=== PATIENT | female | born 1945 | race African-American/Black ===

== ENCOUNTER 2023-09-19 10:52 | Emergency (ER) | payer MEDICARE ==
[~2023-09-19] VITALS: Ht 160 cm; Wt 47.6 kg
[2023-09-19 10:58] VITALS: BP_SYST 137; PULSE 88; RESP 24; TEMP 99; O2SAT 98
[2023-09-19] MEDS ORDERED: IPRATROPIUM/ALBUTEROL SULFATE 3 ML AMPUL.NEB (DUONEB) ONE (11:22)
[2023-09-19] MEDS ORDERED: FUROSEMIDE 20 MG/2 ML VIAL IVP ONE (11:30)
[2023-09-19] MEDS ORDERED: methylPREDNISolone SOD SUCC/PF 62.5 MG/ML VIAL IVP ONE (11:30)
[2023-09-19] MEDS ORDERED: IPRATROPIUM/ALBUTEROL SULFATE 3 ML AMPUL.NEB (DUONEB) INH ONE (11:30)
[2023-09-19 12:02] LABS: BASOPHILS % (AUTO) 0.4 % (0.0-2.0); EOSINOPHILS % (AUTO) 0.2 % (0.0-4.0); HEMATOCRIT 41.8 % (36-48); LYMPHOCYTES # (AUTO) 0.6 K/uL (1.0-5.5); LYMPHOCYTES % (AUTO) 7.9 % (20.5-51.5); MEAN CORPUSCULAR HEMOGLOBIN 27 pg (27-31); MEAN CORPUSCULAR HGB CONC 31 % (32-36); MEAN CORPUSCULAR VOLUME 85 fL (79.0-98.0); MONOCYTES # (AUTO) 0.5 K/uL (0.0-1.0); MONOCYTES % (AUTO) 6.3 % (1.7-9.3); NEUTROPHILS # (AUTO) 6.8 K/uL (1.8-7.7); NEUTROPHILS % (AUTO) 85.2 % (40.0-70.0); PLATELET COUNT (AUTO) 310 K/uL (130-430); RED BLOOD CELL COUNT(AUTO) 4.91 MIL/uL (4.2-6.2); RED CELL DISTRIBUTION WIDTH 15.9 % (9.0-15.0)
[2023-09-19 12:17] LABS: ANION GAP 10 (5-15); CALCIUM 9.8 mg/dL (8.4-11.0); CARBON DIOXIDE 28 mmol/L (23-29); CHLORIDE 99 mmol/L (98-107); CREATININE 0.79 mg/dL (0.55-1.30); GLUCOSE 105 mg/dL (74-106); POTASSIUM 4.6 mmol/L (3.5-5.1); SODIUM SERUM 137 mmol/L (136-145); UREA NITROGEN, BLOOD 25 mg/dL (8-21)
[2023-09-19 12:24] LABS: ALANINE AMINOTRANSFERASE 22 U/L (12-78); ALBUMIN 2.6 g/dL (3.4-4.8); ASPARTATE AMINOTRANSFERASE 21 U/L (10-37); TOTAL BILIRUBIN 1.1 mg/dL (0.0-1.0); TOTAL PROTEIN, SERUM 7.2 g/dL (6.4-8.3)
[2023-09-19] MEDS ORDERED: APIX5TAB PO (13:44)
[2023-09-19] MEDS ORDERED: HYDR-3917 PO (13:47)
[2023-09-19 13:58] LABS: INFLUENZA TYPE A NEGATIVE (NEGATIVE)
[2023-09-19 14:00] LABS: INFLUENZA TYPE B POSITIVE (NEGATIVE)
[2023-09-19] MEDS ORDERED: AZITHROMYCIN 500 MG in NS 250 ML IV ONE ×3 (14:00→16:00)
[2023-09-19] MEDS ORDERED: MORPHINE 2 MG/ML INJ. SYRINGE IVP ONE (14:00)
[2023-09-19] MEDS ORDERED: AZITHROMYCIN 500 MG in NS 250 ML IV SCH (15:00)
[2023-09-19] MEDS ORDERED: OSELTAMIVIR PHOSPHATE 75 MG CAPSULE PO ONE (15:00)
[2023-09-19 17:57] VITALS: BP_SYST 126; PULSE 73; RESP 18; TEMP 97.6; O2SAT 97
== END 2023-09-19 17:47 | disposition short-term general hospital (02) ==
LOC: SED 10:52
DX: J10.1 Influenza due to other identified influenza virus with other respiratory manifestations (principal); J18.9 Pneumonia, unspecified organism; I11.0 Hypertensive heart disease with heart failure; I50.9 Heart failure, unspecified; R07.89 Other chest pain; Z91.013 Allergy to seafood; Z79.899 Other long term (current) drug therapy; Z20.822 Contact with and (suspected) exposure to COVID-19
CPT/HCPCS: 99285; 96365; 71270; 71045; 96375; 96366; 87426; 80053; 83880; 85025; 85379; 87040; 84484; 36415; 76376; 94640; 94760; 96368; 83605; 87804 ×2; J0456; J0696; J1940; J2930; J7060; J7050; G9035

== ENCOUNTER 2024-03-07 15:09 | Emergency (ER) | payer MEDICARE ==
[~2024-03-07] VITALS: Ht 157.5 cm; Wt 52.2 kg
[~2024-03-07 15:09] MED LIST: APIX5TAB PO; HYDR-3917 PO
[2024-03-07 15:12] VITALS: BP_SYST 155; PULSE 80; RESP 20; TEMP 97.8; O2SAT 96
[2024-03-07 17:11] LABS: BASOPHILS % (AUTO) 0.1 % (0.0-2.0); EOSINOPHILS # (AUTO) 0.1 K/uL (0.0-0.4); EOSINOPHILS % (AUTO) 1.5 % (0.0-4.0); HEMATOCRIT 41.2 % (36-48); HEMOGLOBIN 13.1 g/dL (12.0-16.0); LYMPHOCYTES # (AUTO) 1.2 K/uL (1.0-5.5); LYMPHOCYTES % (AUTO) 13.5 % (20.5-51.5); MEAN CORPUSCULAR HEMOGLOBIN 26 pg (27-31); MEAN CORPUSCULAR HGB CONC 32 % (32-36); MEAN CORPUSCULAR VOLUME 81 fL (79.0-98.0); MONOCYTES # (AUTO) 0.8 K/uL (0.0-1.0); MONOCYTES % (AUTO) 8.9 % (1.7-9.3); NEUTROPHILS # (AUTO) 6.8 K/uL (1.8-7.7); PLATELET COUNT (AUTO) 235 K/uL (130-430); RED BLOOD CELL COUNT(AUTO) 5.09 MIL/uL (4.2-6.2); RED CELL DISTRIBUTION WIDTH 18.8 % (9.0-15.0); WHITE BLOOD COUNT (AUTO) 8.9 K/uL (4.8-10.8)
[2024-03-07 17:27] LABS: ALANINE AMINOTRANSFERASE 35 U/L (12-78); ANION GAP 5 (5-15); ASPARTATE AMINOTRANSFERASE 21 U/L (10-37); BILIRUBIN,DIRECT 0.9 mg/dL (0.0-0.3); CALCIUM 8.5 mg/dL (8.4-11.0); CARBON DIOXIDE 39 mmol/L (23-29); CHLORIDE 101 mmol/L (98-107); CREATININE 1.08 mg/dL (0.55-1.30); GLUCOSE 166 mg/dL (74-106); LIPASE 47 U/L (16-77); POTASSIUM 3.5 mmol/L (3.5-5.1); SODIUM SERUM 145 mmol/L (136-145); TOTAL BILIRUBIN 1.5 mg/dL (0.0-1.0); TOTAL PROTEIN, SERUM 6.3 g/dL (6.4-8.3); UREA NITROGEN, BLOOD 54 mg/dL (8-21)
[2024-03-07 19:19] VITALS: BP_SYST 130; PULSE 77; RESP 18; TEMP 97.5; O2SAT 93
== END 2024-03-07 17:50 | disposition home or self-care (01) ==
LOC: SED 15:09
DX: R10.9 Unspecified abdominal pain (principal); R19.7 Diarrhea, unspecified; J44.9 Chronic obstructive pulmonary disease, unspecified; I10 Essential (primary) hypertension; Z91.013 Allergy to seafood; Z79.899 Other long term (current) drug therapy
CPT/HCPCS: 36415; 80048; 80076; 83690; 85025; 99284

== ENCOUNTER 2024-07-26 00:15 | Inpatient (IN) | payer MEDICARE ==
[~2024-07-26] VITALS: Ht 157.5 cm; Wt 46.7 kg
[2024-07-26 00:15] VITALS: BP_SYST 104; PULSE 84; RESP 21; TEMP 98.9; O2SAT 100
[2024-07-26] MEDS: methylPREDNISolone SOD SUCC/PF 62.5 MG/ML VIAL IVP ONE (01:25)
[2024-07-26] MEDS ORDERED: methylPREDNISolone SOD SUCC/PF 62.5 MG/ML VIAL ONE (01:27)
[2024-07-26] MEDS: cefTRIAXone 1 GM in D5W 50 ML IV ONE (01:36)
[2024-07-26] MEDS ORDERED: cefTRIAXone 1 GM VIAL ONE (01:37)
[2024-07-26] MEDS: AZITHROMYCIN 500 MG in NS 250 ML IV ONE (01:54)
[2024-07-26] MEDS ORDERED: AZITHROMYCIN 500 MG/VIAL (ZITHROMAX) IV ONE (01:56)
[2024-07-26 02:19] LABS: ANION GAP 4 (5-15); CALCIUM 9.3 mg/dL (8.4-11.0); CARBON DIOXIDE 31 mmol/L (23-29); CHLORIDE 97 mmol/L (98-107); CREATININE 0.96 mg/dL (0.55-1.30); GLUCOSE 112 mg/dL (74-106); SODIUM SERUM 132 mmol/L (136-145); UREA NITROGEN, BLOOD 23 mg/dL (8-21)
[2024-07-26 02:28] LABS: BASOPHILS % (AUTO) 0.3 % (0.0-2.0); EOSINOPHILS % (AUTO) 0.3 % (0.0-4.0); LYMPHOCYTES # (AUTO) 1.5 K/uL (1.0-5.5); LYMPHOCYTES % (AUTO) 10.5 % (20.5-51.5); MEAN CORPUSCULAR HEMOGLOBIN 26 pg (27-31); MEAN CORPUSCULAR HGB CONC 32 % (32-36); MEAN CORPUSCULAR VOLUME 82 fL (79.0-98.0); MONOCYTES # (AUTO) 1.1 K/uL (0.0-1.0); MONOCYTES % (AUTO) 7.9 % (1.7-9.3); NEUTROPHILS # (AUTO) 11.6 K/uL (1.8-7.7); PLATELET COUNT (AUTO) 282 K/uL (130-430); RED BLOOD CELL COUNT(AUTO) 5.03 MIL/uL (4.2-6.2); RED CELL DISTRIBUTION WIDTH 18.1 % (9.0-15.0); WHITE BLOOD COUNT (AUTO) 14.3 K/uL (4.8-10.8)
[2024-07-26] MEDS ORDERED: ALBUTEROL SULFATE 0.083% 2.5 MG/3 ML VIAL.NEB INH PRN (05:45)
[2024-07-26] MEDS ORDERED: CARV3.1246 PO (05:48)
[2024-07-26 09:07] VITALS: BP_SYST 113; PULSE 72; RESP 18; TEMP 98.2
[2024-07-26 09:18] VITALS: BP_SYST 113; PULSE 72; RESP 18; TEMP 98.2; O2SAT 95
[2024-07-26 09:57] VITALS: BP_SYST 108; PULSE 61; O2SAT 95
[2024-07-26 10:44] VITALS: O2SAT 95
[2024-07-26 16:25] VITALS: BP_SYST 108; PULSE 70; RESP 24; TEMP 97.5; O2SAT 100
[2024-07-26] MEDS ORDERED: IPRATROPIUM/ALBUTEROL SULFATE 3 ML AMPUL.NEB (DUONEB) INH PRN (16:45)
[2024-07-26] MEDS ORDERED: AZITHROMYCIN 500 MG in NS 250 ML IV SCH (17:30)
[2024-07-26] MEDS ORDERED: cefTRIAXone 1 GM in D5W 50 ML IV SCH (18:00)
[2024-07-26] MEDS ORDERED: CARVEDILOL 3.125 MG TABLET (COREG) PO SCH (21:00)
[2024-07-26] MEDS ORDERED: APIXABAN 2.5 MG TABLET PO SCH (21:00)
[2024-07-26] MEDS ORDERED: METHYLPREDNISOLONE SOD SUCC 40 MG/ML VIAL IVP SCH (21:00)
== END 2024-07-26 17:25 | disposition short-term general hospital (02) | DRG 189 ==
LOC: SED 00:15 → UNDOADMIN 05:37 → STU 05:37 → SMU 05:37 → STU 05:43 → UNDODISIN 17:25
PROVIDERS: ADMIT Internal Medicine; ATTEND Internal Medicine
DX: J96.20 Acute and chronic respiratory failure, unspecified whether with hypoxia or hypercapnia (principal); J18.9 Pneumonia, unspecified organism; J44.1 Chronic obstructive pulmonary disease with (acute) exacerbation; I50.9 Heart failure, unspecified; Z20.822 Contact with and (suspected) exposure to COVID-19; I11.0 Hypertensive heart disease with heart failure; Z79.01 Long term (current) use of anticoagulants; Z88.8 Allergy status to other drugs, medicaments and biological substances; Z79.899 Other long term (current) drug therapy; Z91.013 Allergy to seafood
CPT/HCPCS: 36415; 71045; 80048; 83880; 84484; 85025; 87040; 93005; 96365; 99291; G0378; J0456; J0696; J2930; J7050; J7060

== ENCOUNTER 2024-09-08 18:48 | Inpatient (IN) | payer MEDICARE ==
[~2024-09-08] VITALS: Ht 157.5 cm; Wt 45.4 kg
[~2024-09-08 18:48] MED LIST changes: +CARV3.1246 PO
[2024-09-08 18:58] VITALS: BP_SYST 113; PULSE 78; RESP 18; TEMP 98; O2SAT 94
[2024-09-08 20:24] LABS: ANION GAP 3 (5-15); CALCIUM 9.8 mg/dL (8.4-11.0); CHLORIDE 90 mmol/L (98-107); CREATINE KINASE, TOTAL 36 U/L (26-192); CREATININE 1.58 mg/dL (0.55-1.30); GLUCOSE 131 mg/dL (74-106); SODIUM SERUM 136 mmol/L (136-145); UREA NITROGEN, BLOOD 81 mg/dL (8-21)
[2024-09-08 20:32] LABS: BASOPHILS % (AUTO) 0.6 % (0.0-2.0); EOSINOPHILS % (AUTO) 0.6 % (0.0-4.0); HEMOGLOBIN 13.6 g/dL (12.0-16.0); LYMPHOCYTES # (AUTO) 1.2 K/uL (1.0-5.5); LYMPHOCYTES % (AUTO) 15.3 % (20.5-51.5); MEAN CORPUSCULAR HEMOGLOBIN 27 pg (27-31); MEAN CORPUSCULAR HGB CONC 33 % (32-36); MEAN CORPUSCULAR VOLUME 82 fL (79.0-98.0); MONOCYTES % (AUTO) 13.5 % (1.7-9.3); NEUTROPHILS # (AUTO) 5.3 K/uL (1.8-7.7); PLATELET COUNT (AUTO) 290 K/uL (130-430); RED BLOOD CELL COUNT(AUTO) 5.03 MIL/uL (4.2-6.2); RED CELL DISTRIBUTION WIDTH 17.2 % (9.0-15.0); WHITE BLOOD COUNT (AUTO) 7.5 K/uL (4.8-10.8)
[2024-09-08 20:34] LABS: CARBON DIOXIDE 43 mmol/L (23-29); POTASSIUM 2.4 mmol/L (3.5-5.1)
[2024-09-08 21:06] LABS: INR 1.2 (0.8-1.2); PROTHROMBIN TIME 12.5 SECS (9.5-12.5)
[2024-09-08] MEDS: POTASSIUM CHLORIDE 20 MEQ/PKT PACKET PO ONE (21:20)
[2024-09-08] MEDS: ASPIRIN 325 MG TABLET PO ONE (21:22)
[2024-09-08] MEDS: KCL 20 mEq in 100 mL (PREMIX) 100 ML IV ONE (21:35)
[2024-09-08] MEDS: NS 500 ML IV ONE (22:13)
[2024-09-08 23:25] LABS: BILIRUBIN,URINE NEGATIVE (NEGATIVE); BLOOD, URINE 3+ (NEGATIVE); CLARITY/URINE SL CLOUDY (CLEAR); COLOR,URINE YELLOW (YELLOW); GLUCOSE,URINE TRACE (NEGATIVE); KETONES,URINE NEGATIVE (NEGATIVE); LEUKOCYTE ESTERASE ,URINE TRACE (NEGATIVE); NITRITE, URINE NEGATIVE (NEGATIVE); PH,URINE 6.5 (5.0-8.0); PROTEIN URINE NEGATIVE (NEGATIVE); UROBILINOGEN,URINE 0.2 (0.2-1.0)
[2024-09-08] MEDS ORDERED: MORPHINE 2 MG/ML INJ. SYRINGE IVP PRN (23:30)
[2024-09-08 23:49] LABS: BACTERIA,URINE FEW /HPF (None Seen); RBC,URINE 20-50 /HPF (0-3)
[2024-09-09] VITALS (14 sets, daily range): BP systolic 86–125; PULSE 60–76; RESP 10–22; TEMP 97–97.6; O2SAT 92–98
[2024-09-09] MEDS: NACL 0.9% 1,000 ML IV ONE (00:38)
[2024-09-09] MEDS ORDERED: HEPARIN SODIUM,PORCINE 5,000 UNITS/ML VIAL ONE (00:51)
[2024-09-09] MEDS: NACL 0.9% 1,000 ML IV PRN (01:22)
[2024-09-09] MEDS: HEPARIN 25,000 UNITS/D5W 250ML 250 ML IV ONE (01:58)
[2024-09-09] MEDS: ATORVASTATIN 20 MG TABLET PO ONE (02:02)
[2024-09-09] MEDS: ATORVASTATIN 20 MG TABLET ONE (02:08)
[2024-09-09] MEDS ORDERED: IPRATROPIUM BROM 0.5 MG/2.5 ML VIAL.NEB (ATROVENT) INH PRN (06:30)
[2024-09-09] MEDS ORDERED: ALBUTEROL SULFATE 0.083% 2.5 MG/3 ML VIAL.NEB INH PRN (06:30)
[2024-09-09] MEDS ORDERED: LORazepam 2 MG/ML VIAL IVP PRN (06:30)
[2024-09-09] MEDS ORDERED: *HEPARIN PER PHARMACY XX ONE (06:45)
[2024-09-09 08:37] LABS: BASOPHILS % (AUTO) 0.7 % (0.0-2.0); EOSINOPHILS # (AUTO) 0.1 K/uL (0.0-0.4); EOSINOPHILS % (AUTO) 1.4 % (0.0-4.0); HEMATOCRIT 41.1 % (36-48); HEMOGLOBIN 13.2 g/dL (12.0-16.0); LYMPHOCYTES % (AUTO) 28.6 % (20.5-51.5); MEAN CORPUSCULAR HEMOGLOBIN 27 pg (27-31); MEAN CORPUSCULAR HGB CONC 32 % (32-36); MEAN CORPUSCULAR VOLUME 83 fL (79.0-98.0); MONOCYTES % (AUTO) 14.2 % (1.7-9.3); NEUTROPHILS # (AUTO) 3.9 K/uL (1.8-7.7); NEUTROPHILS % (AUTO) 55.1 % (40.0-70.0); PLATELET COUNT (AUTO) 294 K/uL (130-430); RED BLOOD CELL COUNT(AUTO) 4.93 MIL/uL (4.2-6.2); RED CELL DISTRIBUTION WIDTH 17.6 % (9.0-15.0); WHITE BLOOD COUNT (AUTO) 7.1 K/uL (4.8-10.8)
[2024-09-09] MEDS: ASPIRIN 81 MG TAB.CHEW PO SCH (09:00)
[2024-09-09] MEDS: cefTRIAXone 1 GM in D5W 50 ML IV SCH (09:00)
[2024-09-09 09:10] LABS: ALANINE AMINOTRANSFERASE 18 U/L (12-78); ALBUMIN 3.1 g/dL (3.4-4.8); ANION GAP 6 (5-15); ASPARTATE AMINOTRANSFERASE 38 U/L (10-37); CALCIUM 9.5 mg/dL (8.4-11.0); CARBON DIOXIDE 38 mmol/L (23-29); CHLORIDE 98 mmol/L (98-107); CHOLESTEROL 150 mg/dL (<200); GLUCOSE 85 mg/dL (74-106); HDL CHOLESTEROL 85 mg/dL (>55); POTASSIUM 3.8 mmol/L (3.5-5.1); SODIUM SERUM 142 mmol/L (136-145); THYROID STIMULATING HORMONE 0.77 uIu/mL (0.34-4.82); TOTAL BILIRUBIN 1.1 mg/dL (0.0-1.0); TOTAL PROTEIN, SERUM 6.5 g/dL (6.4-8.3); TRIGLYCERIDES 44 mg/dL (30-150); UREA NITROGEN, BLOOD 63 mg/dL (8-21)
[2024-09-09] MEDS ORDERED: HEPARIN SODIUM, PORCINE 10,000 UNITS/ 10 ML VIAL ONE (09:31)
[2024-09-09] MEDS ORDERED: HEPARIN SODIUM,PORCINE 2000 UNITS/0.4 ML BOLUS IVP PRN (09:45)
[2024-09-09] MEDS ORDERED: cefTRIAXone 1 GM VIAL ONE (10:55)
[2024-09-09 10:57] LABS: HEMOGLOBIN A1C 5.8 % (<5.7)
[2024-09-09] MEDS: HEPARIN SODIUM,PORCINE 3000 UNITS/0.6 ML BOLUS IVP PRN (10:57)
[2024-09-09] MEDS ORDERED: NITROGLYCERIN 250 ML IV ONE (11:00)
[2024-09-09] MEDS ORDERED: D5W IV PRN (11:10)
[2024-09-09] MEDS ORDERED: NITROGLYCERIN IV PRN (11:10)
[2024-09-09 11:49] LABS: POTASSIUM 3.2 mmol/L (3.5-5.1)
[2024-09-09] MEDS: HEPARIN 25,000 UNITS in 250 ML PREMIX IV PRN (12:41)
[2024-09-09] MEDS: NITROGLYCERIN 0.4 MG TAB.SUBL SL PRN (14:15)
[2024-09-09] MEDS: ACETAMINOPHEN 325 MG TABLET PO PRN (16:29)
[2024-09-09] MEDS: FUROSEMIDE 40 MG/4 ML VIAL IVP ONE (17:30)
[2024-09-09] MEDS ORDERED: KETOROLAC TROMETHAMINE 10 MG TABLET (TORADOL) PO PRN (17:45)
[2024-09-09] MEDS: POTASSIUM CHLORIDE 20 MEQ TABLET.ER PO ONE (18:38)
[2024-09-09 18:45] LABS: INR 1.1 (0.8-1.2); PROTHROMBIN TIME 11.7 SECS (9.5-12.5)
[2024-09-09] MEDS ORDERED: METOPROLOL TARTRATE 25 MG TABLET PO SCH (21:00)
[2024-09-09] MEDS ORDERED: HYDROcodone/ACETAMIN 5-325 MG TAB (NORCO/ VICODIN) PO PRN (21:00)
[2024-09-09] MEDS ORDERED: MORPHINE 2 MG/ML INJ. SYRINGE IVP PRN (21:00)
[2024-09-09] MEDS: METOPROLOL TARTRATE 25 MG TABLET PO SCH (21:00)
[2024-09-09] MEDS ORDERED: CARVEDILOL 6.25 MG TABLET (COREG) PO SCH (21:00)
[2024-09-09] MEDS: ATORVASTATIN 20 MG TABLET PO SCH (21:30)
[2024-09-09] MEDS: KETOROLAC TROMETHAMINE 15 MG VIAL IVP PRN (22:00)
[2024-09-10] VITALS (19 sets, daily range): BP systolic 89–139; PULSE 58–71; RESP 14–22; TEMP 97.1–98.2; O2SAT 90–99
[2024-09-10 02:27] LABS: BASOPHILS # (AUTO) 0.1 K/uL (0.0-0.2); BASOPHILS % (AUTO) 0.8 % (0.0-2.0); EOSINOPHILS # (AUTO) 0.2 K/uL (0.0-0.4); EOSINOPHILS % (AUTO) 1.5 % (0.0-4.0); HEMATOCRIT 33.9 % (36-48); LYMPHOCYTES # (AUTO) 1.2 K/uL (1.0-5.5); LYMPHOCYTES % (AUTO) 8.2 % (20.5-51.5); MEAN CORPUSCULAR HEMOGLOBIN 27 pg (27-31); MEAN CORPUSCULAR HGB CONC 33 % (32-36); MEAN CORPUSCULAR VOLUME 82 fL (79.0-98.0); MONOCYTES # (AUTO) 1.6 K/uL (0.0-1.0); MONOCYTES % (AUTO) 11.2 % (1.7-9.3); NEUTROPHILS # (AUTO) 11.5 K/uL (1.8-7.7); NEUTROPHILS % (AUTO) 78.3 % (40.0-70.0); PLATELET COUNT (AUTO) 252 K/uL (130-430); RED BLOOD CELL COUNT(AUTO) 4.12 MIL/uL (4.2-6.2); RED CELL DISTRIBUTION WIDTH 17.5 % (9.0-15.0); WHITE BLOOD COUNT (AUTO) 14.7 K/uL (4.8-10.8)
[2024-09-10] MEDS: ONDANSETRON HCL 4 MG/2 ML VIAL IVP PRN (02:47)
[2024-09-10 03:00] LABS: ANION GAP 5 (5-15); CALCIUM 8.7 mg/dL (8.4-11.0); CARBON DIOXIDE 37 mmol/L (23-29); CHLORIDE 98 mmol/L (98-107); CREATININE 1.37 mg/dL (0.55-1.30); GLUCOSE 97 mg/dL (74-106); SODIUM SERUM 140 mmol/L (136-145); UREA NITROGEN, BLOOD 60 mg/dL (8-21)
[2024-09-10] MEDS: AZITHROMYCIN 500 MG in NS 250 ML IV SCH (12:21)
[2024-09-10] MEDS: POTASSIUM CHLORIDE 20 MEQ/PKT PACKET PO ONE (12:21)
[2024-09-10] MEDS: FUROSEMIDE 40 MG TABLET PO ONE (12:26)
[2024-09-10] MEDS: KCL 40 mEq in 100 mL (PREMIX) 100 ML IV ONE (12:29)
[2024-09-10] MEDS: MIDODRINE HCL 5 MG TABLET (PROAMATINE) PO ONE (12:31)
[2024-09-10] MEDS: MIDODRINE HCL 5 MG TABLET (PROAMATINE) PO SCH (15:09)
[2024-09-10] MEDS ORDERED: FURO-149 PO (17:36)
[2024-09-10] MEDS ORDERED: LIP20 PO (17:36)
[2024-09-11] MEDS ORDERED: FUROSEMIDE 40 MG TABLET PO SCH (09:00)
== END 2024-09-10 18:05 | disposition short-term general hospital (02) | DRG 280 ==
LOC: SED 18:48 → STU 23:27 → SIC 09-09 12:54
PROVIDERS: ADMIT Internal Medicine; ATTEND Internal Medicine
PROC: 02HV33Z Insertion of Infusion Device into Superior Vena Cava, Percutaneous Approach (ICD-10-PCS; principal; 2024-09-09)
DX: I21.4 Non-ST elevation (NSTEMI) myocardial infarction (principal); J96.01 Acute respiratory failure with hypoxia; N17.0 Acute kidney failure with tubular necrosis; J44.1 Chronic obstructive pulmonary disease with (acute) exacerbation; N39.0 Urinary tract infection, site not specified; Z20.822 Contact with and (suspected) exposure to COVID-19; E87.6 Hypokalemia; I50.9 Heart failure, unspecified; I48.0 Paroxysmal atrial fibrillation; I50.813 Acute on chronic right heart failure; R73.9 Hyperglycemia, unspecified; E78.5 Hyperlipidemia, unspecified; I27.20 Pulmonary hypertension, unspecified; I11.0 Hypertensive heart disease with heart failure; Z79.899 Other long term (current) drug therapy; Z86.711 Personal history of pulmonary embolism
CPT/HCPCS: 36415; 71045; 80048; 80053; 80061; 81000; 81001; 81015; 82550; 83037; 83605; 83735; 83880; 84132; 84443; 84484; 85025; 85379; 85610; 85730; 87040; 87081; 87086; 93005; 93306; 94070; 99291; C1751; G0378; J0456; J0696; J1644; J1885; J1940; J2405; J3480; J7030; J7050; J7060

== ENCOUNTER 2024-09-14 22:08 | Emergency (ER) | payer MEDICARE ==
[~2024-09-14] VITALS: Ht 157.5 cm; Wt 40.8 kg
[~2024-09-14 22:08] MED LIST changes: -CARV3.1246 PO; +FURO-149 PO; -HYDR-3917 PO; +LIP20 PO
[2024-09-14 22:32] VITALS: BP_SYST 165; PULSE 82; RESP 16; TEMP 96.8; O2SAT 97
[2024-09-15 00:42] LABS: HEMOGLOBIN 13.4 g/dL (12.0-16.0)
[2024-09-15 00:48] LABS: BASOPHILS % (AUTO) 0.6 % (0.0-2.0); EOSINOPHILS % (AUTO) 0.5 % (0.0-4.0); HEMATOCRIT 40.5 % (36-48); LYMPHOCYTES # (AUTO) 1.7 K/uL (1.0-5.5); MEAN CORPUSCULAR HEMOGLOBIN 27 pg (27-31); MEAN CORPUSCULAR HGB CONC 33 % (32-36); MEAN CORPUSCULAR VOLUME 81 fL (79.0-98.0); MONOCYTES # (AUTO) 0.6 K/uL (0.0-1.0); MONOCYTES % (AUTO) 8.1 % (1.7-9.3); NEUTROPHILS # (AUTO) 5.5 K/uL (1.8-7.7); NEUTROPHILS % (AUTO) 69.8 % (40.0-70.0); PLATELET COUNT (AUTO) 281 K/uL (130-430); RED BLOOD CELL COUNT(AUTO) 4.99 MIL/uL (4.2-6.2); RED CELL DISTRIBUTION WIDTH 17.8 % (9.0-15.0); WHITE BLOOD COUNT (AUTO) 7.9 K/uL (4.8-10.8)
[2024-09-15] MEDS ORDERED: DEXTROSE 50% JECT 50 ML DISP.SYRIN IVP ONE (01:45)
[2024-09-15] MEDS ORDERED: CALCIUM CHLORIDE 1 GM in NS 100 ML IV ONE (01:45)
[2024-09-15] MEDS ORDERED: INSULIN REGULAR, HUMAN 10 UNITS/0.1 ML, 3 ML VIAL IVP ONE (01:45)
[2024-09-15] MEDS ORDERED: CALCIUM CHLORIDE 1 GM/10 ML DISP.SYRIN (14 mEq Ca++/SYR) ONE (01:50)
[2024-09-15] MEDS ORDERED: ALBUTEROL SULFATE 0.083% 2.5 MG/3 ML VIAL.NEB INH ONE (01:52)
[2024-09-15] MEDS: ALBUTEROL SULFATE 0.083% 2.5 MG/3 ML VIAL.NEB INH ONE (01:56)
[2024-09-15 02:06] LABS: BILIRUBIN,URINE NEGATIVE (NEGATIVE); BLOOD, URINE NEGATIVE (NEGATIVE); CLARITY/URINE CLEAR (CLEAR); COLOR,URINE YELLOW (YELLOW); GLUCOSE,URINE NEGATIVE (NEGATIVE); KETONES,URINE TRACE (NEGATIVE); LEUKOCYTE ESTERASE ,URINE NEGATIVE (NEGATIVE); NITRITE, URINE NEGATIVE (NEGATIVE); PROTEIN URINE NEGATIVE (NEGATIVE)
[2024-09-15 02:27] LABS: ALANINE AMINOTRANSFERASE 20 U/L (12-78); ALBUMIN 3.1 g/dL (3.4-4.8); ANION GAP 6 (5-15); ASPARTATE AMINOTRANSFERASE 22 U/L (10-37); BILIRUBIN,DIRECT 0.5 mg/dL (0.0-0.3); CALCIUM 9.6 mg/dL (8.4-11.0); CARBON DIOXIDE 38 mmol/L (23-29); CHLORIDE 86 mmol/L (98-107); GLUCOSE 98 mg/dL (74-106); LIPASE 17 U/L (16-77); POTASSIUM 4.8 mmol/L (3.5-5.1); SODIUM SERUM 130 mmol/L (136-145); TOTAL BILIRUBIN 0.9 mg/dL (0.0-1.0); TOTAL PROTEIN, SERUM 7.1 g/dL (6.4-8.3); UREA NITROGEN, BLOOD 49 mg/dL (8-21)
[2024-09-15] MEDS ORDERED: DOCU-144 PO (03:24)
[2024-09-15 04:45] VITALS: BP_SYST 118; PULSE 68; RESP 14; TEMP 97.9; O2SAT 95
== END 2024-09-15 04:45 | disposition home or self-care (01) ==
LOC: SED 22:08
DX: K59.00 Constipation, unspecified (principal); R10.84 Generalized abdominal pain; J44.9 Chronic obstructive pulmonary disease, unspecified; I11.0 Hypertensive heart disease with heart failure; I50.9 Heart failure, unspecified; J96.10 Chronic respiratory failure, unspecified whether with hypoxia or hypercapnia; I48.91 Unspecified atrial fibrillation; I25.2 Old myocardial infarction; Z79.01 Long term (current) use of anticoagulants; Z86.711 Personal history of pulmonary embolism; Z79.899 Other long term (current) drug therapy
CPT/HCPCS: 36415; 71045; 80048; 80076; 81001; 81003; 83690; 84484; 85025; 93005; 94640; 94664; 99285; J1815